=== PATIENT | male | born 1970 | race Caucasian/White ===

== ENCOUNTER 2017-02-06 14:40 | Emergency (ER) | payer OTHER ==
[~2017-02-06] VITALS: Ht 180.3 cm; Wt 100.0 kg
[~2017-02-06 14:40] MED LIST: ZITHROMAX Z-PA250 MG PO
[2017-02-06] MEDS ORDERED: MOTRIN800 MG PO (16:50)
[2017-02-06] MEDS ORDERED: SKELAXIN800 MG PO (16:50)
[2017-02-06 17:29] VITALS: BP 135/84
== END 2017-02-06 17:30 | disposition home or self-care (01) ==
LOC: EME 14:40
DX: M70.51 Other bursitis of knee, right knee (principal); M17.11 Unilateral primary osteoarthritis, right knee; Z88.0 Allergy status to penicillin
CPT/HCPCS: 73564; 99281; 99284